=== PATIENT | male | born 1950 | race Caucasian/White ===

== ENCOUNTER 2016-11-18 21:30 | Emergency (ER) | payer OTHER ==
[~2016-11-18] VITALS: Ht 175.3 cm; Wt 73.0 kg
[~2016-11-18 21:30] MED LIST: ASPI81TA82 PO; IMIT25TA PO; LIDO5DIS35 TD; METH10TA PO; METH750T2 PO; MOBI7.5T PO; MULTCAP13 PO; NEUR800T PO; TOPA15CA PO; TRAZ50TA4 PO
[2016-11-18 21:32] VITALS: TEMP 97.8
[2016-11-18 21:37] VITALS: BP 129/83; PULSE 85; RESP 18; O2SAT 96
[2016-11-18] MEDS ORDERED: ACETAMINOPHEN 500 MG CPLT PO ONE (21:45)
--- NOTE | 2016-11-18 22:09 | RADRPT ---
EXAM DATE/TIME: 11/18/2016 21:53 [facility] COMPARISON: CT BRAIN W/O CONTRAST, July 23, 2016, 13:13. INDICATIONS : Trauma; fall. RADIATION DOSE: 40.14 CTDIvol (mGy) MEDICAL HISTORY : Cerebrovascular disease. SURGICAL HISTORY : None. ENCOUNTER: Initial ACUITY: 1 day PAIN SCALE: 5/10 LOCATION: Cranial TECHNIQUE: Multiple contiguous axial images were obtained of the head. Using automated exposure control and adjustment of the mA and/or kV according to patient size, radiation dose was kept as low as reasonably achievable to obtain optimal diagnostic quality images. FINDINGS: There is an old infarct in the right temporal region. The left hemisphere is unremarkable. Posterio r fossa appears normal. There is no parenchymal hemorrhage evident. I see no extra-axial fluid collections appreciated. There is no evidence for fracture. 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 Abelino Rainey MD FACR on November 18, 2016 at 22:03 Board Certified Radiologist. This report was verified electronically.
--- NOTE | 2016-11-18 22:12 | RADRPT ---
EXAM DATE/TIME: 11/18/2016 21:53 [facility] COMPARISON: CT CERVICAL SPINE W/O CONTRAST, July 23, 2016, 13:13. INDICATIONS : Trauma; fall. RADIATION DOSE: 21.53 CTDIvol (mGy) MEDICAL HISTORY : Cerebrovascular disease. SURGICAL HISTORY : None. ENCOUNTER: Initial ACUITY: 1 day PAIN SCALE: 5/10 LOCATION: Neck TECHNIQUE: Volumetric scanning of the cervical spine was performed. Multiplanar reconstructions i n the sagittal, coronal and oblique axial planes were performed. Using automated exposure control a nd adjustment of the mA and/or kV according to patient size, radiation dose was kept as low as reason ably achievable to obtain optimal diagnostic quality images. FINDINGS: Patient has a spinal stimulator in place. The spinal stimulator is at the C2 level. Alignment is anatomic. C1 and C2 are intact. C2-C3: The bony spinal canal is normal in size. No evidence of disc bulge or herniation. The neura l foramina are bilaterally patent. C3-C4: There is moderate facet disease with mild bilateral neural foraminal encroachment. C4-C5: There is moderate bilateral facet disease with neural foraminal encroachment. C5-C6: Moderate uncinate ridging is present with bilateral neural foraminal encroachment. There is no significant spinal stenosis. C6-C7: Mild uncinate ridging is present with mild bilateral neural foraminal encroachment. C7-T1: The bony spinal canal is normal in size. No evidence of disc bulge or herniation. The neura l foramina are bilaterally patent. CONCLUSION: 1. Degenerative changes as described above without fracture. 2. Spinal stimulator in place. Abelino Rainey MD FACR on November 18, 2016 at 22:04 Board Certified Radiologist. This report was verified electronically.
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
--- NOTE | 2016-11-18 22:35 | RADRPT ---
EXAM DATE/TIME: 11/18/2016 21:57 [facility] COMPARISON: No previous studies available for comparison. INDICATIONS : Trauma; fall. RADIATION DOSE: 35.86 CTDIvol (mGy) ; Combined studies - Thoracic Spine/Lumbar Spine MEDICAL HISTORY : Cerebrovascular disease. SURGICAL HISTORY : None. ENCOUNTER: Initial ACUITY: 1 day PAIN SCALE: 5/10 LOCATION: Upper back TECHNIQUE: Volumetric scanning of the thoracic spine was performed. Multiplanar reconstructions in the sagittal , coronal and oblique axial planes were performed. Using automated exposure control and adjustment o f the mA and/or kV according to patient size, radiation dose was kept as low as reasonably achievable to obtain optimal diagnostic quality images. FINDINGS: The bones are osteoporotic with scoliosis evident. There are degenerative changes at C6-C7 and C7-T1. There is good preservation of vertebral body heights. I do not see evidence for a fracture. I don't see any radiographically significant spinal stenosis. There is no evidence for a paravertebral mass . Degenerative changes are seen at T12-L1. CONCLUSION: 1. Spinal stimulator at T6-T7 without spinal stenosis. 2. Scoliosis is evident. 3. A fracture is not appreciated. There is no evidence for a paravertebral mass. Abelino Rainey MD FACR on November 18, 2016 at 22:29 Board Certified Radiologist. This report was verified electronically.
--- NOTE | 2016-11-18 22:40 | RADRPT ---
EXAM DATE/TIME: 11/18/2016 21:57 [facility] COMPARISON: No previous studies available for comparison. INDICATIONS : Trauma; fall. RADIATION DOSE: 35.86 CTDIvol (mGy) ; Combined studies - Thoracic Spine/Lumbar Spine MEDICAL HISTORY : Cerebrovascular disease. SURGICAL HISTORY : None. ENCOUNTER: Initial ACUITY: 1 day PAIN SCALE: 5/10 LOCATION: Lower back TECHNIQUE: Volumetric scanning of the lumbar spine was performed. Multiplanar reconstructions in the sagittal, coronal and oblique axial planes were performed. Using automated exposure control and adjustment of the mA and/or kV according to patient size, radiation dose was kept as low as reasonably achievable t o obtain optimal diagnostic quality images. FINDINGS: Scans were obtained from T11 to S1. There are vacuum discs at L1-L2, L2-L3, L3-L4, L4-L5 and L5-S1. There is reasonable preservation of vertebral body heights. T12-L1: Spinal stimulator is noted. There is no significant spinal stenosis. L1-L2: There is generalized disc bulging present with bilateral neural foraminal encroachment and mild spina l stenosis. L2-L3: There is bilateral neural foraminal encroachment and moderate spinal stenosis from disc bulge and lig amentous hypertrophy. L3-L4: There is vacuum disc evident with bilateral neural foraminal encroachment and mild spinal stenosis. Moderate degenerative changes are present in the facets. L4-L5: Vacuum changes are evident with lateral recess stenosis. There is bilateral neural foraminal encroac hment worse on the left than the right. L5-S1: Vacuum changes are evident. There is bilateral neural foraminal encroachment. There are moderate de generative changes in the facets, worse on the right than the left. There are degenerative changes in both SI joints. CONCLUSION: Extensive degenerative changes as described above. I see no evidence for an acute process. Abelino Rainey MD FACR on November 18, 2016 at 22:31 Board Certified Radiologist. This report was verified electronically.
[2016-11-18 23:50] VITALS: BP 130/87
== END 2016-11-18 23:52 | disposition home or self-care (01) ==
LOC: NEPE 21:30
DX: S16.1XXA Strain of muscle, fascia and tendon at neck level, initial encounter (principal); S39.012A Strain of muscle, fascia and tendon of lower back, initial encounter; M54.2 Cervicalgia; W18.30XA Fall on same level, unspecified, initial encounter; Y93.55 Activity, bike riding
CPT/HCPCS: 70450; 72125; 72128; 72131

== ENCOUNTER 2016-11-26 17:53 | Observation (INO) | payer OTHER ==
[2016-11-26] VITALS (8 sets, daily range): BP systolic 104–120; BP diastolic 59–65; PULSE 60–92; RESP 12–18; TEMP 99–101.8; O2SAT 95–100
[~2016-11-26] VITALS: Ht 172.7 cm; Wt 80.0 kg
[2016-11-26] MEDS ORDERED: SODIUM CHLORIDE 0.9% FLUSH 5 ML FLUSH IVF PRN (18:15)
[2016-11-26 18:42] LABS: AUTOMATED NEUTROPHIL # 6.7 TH/MM3 (1.8-7.7); BASOPHIL # 0.1 TH/MM3 (0-0.2); BASOPHIL % 0.7 % (0.0-2.0); EOSINOPHIL # 0.2 TH/MM3 (0-0.4); EOSINOPHIL % 3.1 % (0.0-4.0); HEMATOCRIT 32.9 % (39.0-51.0); HEMO FLAGS DIFF FINAL; LYMPH % 6.7 % (9.0-44.0); LYMPHOCYTE # 0.5 TH/MM3 (1.0-4.8); MEAN CELL VOLUME 85.6 FL (80.0-100.0); MEAN CORPUSCULAR HEMOGLOBIN 28.2 PG (27.0-34.0); MONO % 5.5 % (0.0-8.0); PLATELET COUNT 204 TH/MM3 (150-450); RED BLOOD COUNT 3.84 MIL/MM3 (4.50-5.90); RED CELL DISTRIBUTION WIDTH 14.3 % (11.6-17.2); WHITE BLOOD COUNT 7.9 TH/MM3 (4.0-11.0)
[2016-11-26] MEDS ORDERED: ACETAMINOPHEN 650 MG SUPP RECTAL ONE (18:45)
[2016-11-26] MEDS ORDERED: SODIUM CHLOR 0.9% 1000 ML INJ 1,000 ML IV ONE ×2 (18:45→19:30)
[2016-11-26 18:51] LABS: BLOOD, URINE NEG (NEG); COMMENT (UR) CULT NOT INDICATED; CULTURE IF INDICATED CULT NOT INDICATED; GLUCOSE,URINE NEG (NEG); KETONE, URINE NEG (NEG); MUCUS URINE FEW /lpf (OCC); NITRITE,URINE NEG (NEG); PH, URINE 5.5 (5.0-8.5); URINE COLOR YELLOW (YELLW/STRAW)
[2016-11-26 18:54] LABS: AMPHETAMINE, URINE NEG (NEG); BARBITURATES, URINE NEG (NEG); COCAINE, URINE NEG (NEG)
--- NOTE | 2016-11-26 18:59 | RADRPT ---
EXAM DATE/TIME: 11/26/2016 18:33 [facility] COMPARISON: CT BRAIN W/O CONTRAST, November 18, 2016, 21:53. INDICATIONS : Fever; altered mental status. RADIATION DOSE: 48.23 CTDIvol (mGy) MEDICAL HISTORY : Stroke. SURGICAL HISTORY : None. ENCOUNTER: Initial ACUITY: 1 day PAIN SCALE: 0/10 LOCATION: cranial TECHNIQUE: Multiple contiguous axial images were obtained of the head. Using automated exposure control and adj ustment of the mA and/or kV according to patient size, radiation dose was kept as low as reasonably a chievable to obtain optimal diagnostic quality images. FINDINGS: CEREBRUM: The ventricles are normal for age. There is persistent encephalomalacia at the right temporal lobe e xtending into the right parietal lobe. No evidence of midline shift, mass lesion, hemorrhage or acute infarction. No extra-axial fluid collections are seen. POSTERIOR FOSSA: The cerebellum and brainstem are intact. The 4th ventricle is midline. The cerebellopontine angle i s unremarkable. EXTRACRANIAL: The visualized portion of the orbits is intact. SKULL: The calvaria is intact. No evidence of skull fracture. CONCLUSION: 1. No new or acute abnormality is seen. 2. Persistent right temporal and parietal encephalomalacia. Kurt Small MD on November 26, 2016 at 18:55 Board Certified Radiologist. This report was verified electronically.
[2016-11-26 19:00] LABS: ANION GAP 11 MEQ/L (5-15)
[2016-11-26 19:03] LABS: ACETAMINOPHEN LESS THAN 2.0 MCG/ML (10.0-30.0); ALKALINE PHOSPHATASE 67 U/L (45-117); ALT (GPT) 16 U/L (12-78); AST (GOT) 19 U/L (15-37); BICARBONATE 19.5 MEQ/L (21.0-32.0); BLOOD UREA NITROGEN 21 MG/DL (7-18); CHLORIDE 116 MEQ/L (98-107); CREATINE KINASE 285 U/L (39-308); GLOMERULAR FILTRATION RATE 48 ML/MIN (>89); POTASSIUM 3.9 MEQ/L (3.5-5.1); SODIUM (NA) 146 MEQ/L (136-145); TOTAL BILIRUBIN ADULT 0.5 MG/DL (0.2-1.0)
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
--- NOTE | 2016-11-26 19:22 | RADRPT ---
EXAM DATE/TIME: 11/26/2016 18:44 [place] COMPARISON: No previous studies available for comparison. INDICATIONS : Syncopal episode per history. MEDICAL HISTORY : Cerebrovascular disease. SURGICAL HISTORY : None. ENCOUNTER: Initial ACUITY: 1 day PAIN SCORE: Non-responsive. LOCATION: Bilateral chest FINDINGS: A single view of the chest demonstrates the lungs to be symmetrically aerated with some linear atelec tasis or scarring in the left inferior perihilar distribution. Lungs are otherwise clear. Heart size is normal. Stimulator is seen in the mid dorsal spine and there some additional tubing projecting ove r the dorsal spine possibly representing a shunt. Osseous structures are intact. CONCLUSION: 1. There is linear atelectasis or scarring in the left inferior perihilar distribution. 2. Lungs otherwise clear Kaden Roth MD on November 26, 2016 at 19:16 Board Certified Radiologist. This report was verified electronically.
[2016-11-26] MEDS ORDERED: NALOXONE HCL 0.4 MG/ML AMP IV PRN (20:30)
[2016-11-26] MEDS ORDERED: ONDANSETRON HCL 4 MG/2 ML VIAL IVP PRN (20:30)
[2016-11-26] MEDS ORDERED: ENOXAPARIN SODIUM 40 MG/0.4 ML SYRINGE SQ SCH (20:30)
[2016-11-26] MEDS ORDERED: SODIUM CHLORIDE 0.9% FLUSH 5 ML FLUSH FLUSH PRN (20:30)
[2016-11-26] MEDS ORDERED: ACETAMINOPHEN 325 MG TAB PO PRN (20:30)
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
[2016-11-26] MEDS: SODIUM CHLORIDE 0.9% FLUSH 5 ML FLUSH FLUSH SCH (21:00)
[2016-11-26] MEDS: SODIUM CHLOR 0.9% 1000 ML INJ 1,000 ML IV SCH (21:12)
[2016-11-26] MEDS ORDERED: SODIUM CHLORID 0.9% 500 ML INJ 500 ML IV ONE (21:30)
[2016-11-27 01:28] VITALS: PULSE 73
[2016-11-27 01:49] VITALS: BP 111/72; PULSE 70; RESP 20; TEMP 96.7; O2SAT 99
[2016-11-27 04:19] VITALS: BP 99/59; PULSE 52; RESP 22; TEMP 97.6; O2SAT 95
[2016-11-27] MEDS: SODIUM CHLOR 0.9% 1000 ML INJ 1,000 ML IV SCH (04:42)
[2016-11-27 06:07] LABS: AUTOMATED NEUTROPHIL # 4.7 TH/MM3 (1.8-7.7); BASOPHIL % 0.7 % (0.0-2.0); EOSINOPHIL # 0.2 TH/MM3 (0-0.4); EOSINOPHIL % 2.5 % (0.0-4.0); HEMATOCRIT 30.2 % (39.0-51.0); HEMO FLAGS DIFF FINAL; LYMPH % 18.7 % (9.0-44.0); LYMPHOCYTE # 1.3 TH/MM3 (1.0-4.8); MEAN CELL VOLUME 84.4 FL (80.0-100.0); MEAN CORPUSCULAR HEMOGLOBIN 28.2 PG (27.0-34.0); MEAN CORPUSCULAR HGB CONC 33.4 % (32.0-36.0); MONO % 8.8 % (0.0-8.0); NEUT % 69.3 % (16.0-70.0); PLATELET COUNT 164 TH/MM3 (150-450); RED BLOOD COUNT 3.58 MIL/MM3 (4.50-5.90); RED CELL DISTRIBUTION WIDTH 14.5 % (11.6-17.2); WHITE BLOOD COUNT 6.7 TH/MM3 (4.0-11.0)
[2016-11-27 06:28] LABS: BICARBONATE 20.3 MEQ/L (21.0-32.0); POTASSIUM 3.9 MEQ/L (3.5-5.1)
[2016-11-27 06:48] LABS: CALCIUM-PROTEIN CORRECTED 8.1 MG/DL (8.5-10.1)
[2016-11-27] MEDS: SODIUM CHLORIDE 0.9% FLUSH 5 ML FLUSH FLUSH SCH (07:37)
[2016-11-27 08:00] VITALS: PULSE 55
[2016-11-27 08:23] VITALS: BP 100/72; PULSE 64; RESP 18; TEMP 95.8; O2SAT 98
--- NOTE | 2016-11-27 08:29 | HHI.DCPOC ---
Discharge Care Plan Diagnosis: (1) Altered mental status Goals to Promote Your Health * To prevent worsening of your condition and complications * To maintain your health at the optimal level Directions to Meet Your Goals Take your medications as prescribed Follow your dietary instruction Follow activity as directed Keep your appointments as scheduled Take your immunizations and boosters as scheduled If your symptoms worsen call your PCP, if no PCP go to Urgent Care Center or Emergency Room Smoking is Dangerous to Your Health. Avoid second hand smoke Call the 24-hour hour crisis hotline for domestic abuse at Diana Mayfield MD R3 Nov 27, 2016 08:29
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
--- NOTE | 2016-11-27 17:04 | EKG ---
Date Performed: 11/26/2016 Time Performed: 19:16:07 PTAGE: 66 years EKG: Sinus rhythm Compared to prior tracing no significant change NORMAL ECG PREVIOUS TRACING : 07/23/2016 11.14 DOCTOR: Chiki Carrizales Interpretating Date/Time 11/27/2016 17:02:21
== END 2016-11-27 13:48 | disposition home or self-care (01) ==
LOC: NEPE 17:53 → NEDA 20:07 → NEPGCP 11-27 00:08
PROVIDERS: ADMIT Family Medicine; ATTEND Family Medicine
DX: R41.82 Altered mental status, unspecified (principal); R40.0 Somnolence; R50.9 Fever, unspecified; F11.90 Opioid use, unspecified, uncomplicated; Z86.73 Personal history of transient ischemic attack (TIA), and cerebral infarction without residual deficits
CPT/HCPCS: 70450; 71010; 80048; 80053; 80307; 81001; 82550; 82948; 84155; 85025; 93005; 96374; 99285; G0378; J1650; J7030; J7040; 80320; 80329; G0480; G0481

== ENCOUNTER 2017-01-12 05:42 | Emergency (ER) | payer MEDICARE, OTHER ==
[~2017-01-12] VITALS: Ht 167.6 cm; Wt 61.0 kg
[2017-01-12 05:45] VITALS: BP 135/80; PULSE 96; RESP 16; TEMP 98.2; O2SAT 97
[2017-01-12] MEDS ORDERED: BUTA1CAP PO (06:08)
[2017-01-12] MEDS ORDERED: IMIT100T PO (06:08)
[2017-01-12] MEDS ORDERED: METH10TA PO (06:08)
[2017-01-12] MEDS ORDERED: ASPI81CH CHEW (06:08)
[2017-01-12] MEDS ORDERED: BUPR8SUB SL (06:08)
[2017-01-12] MEDS ORDERED: NEUR800T PO (06:08)
[2017-01-12] MEDS ORDERED: IBUPROFEN 400 MG TAB PO ONE (06:15)
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
[2017-01-12] MEDS ORDERED: IBUP400T20 PO (06:46)
--- NOTE | 2017-01-12 06:49 | RADRPT ---
EXAM DATE/TIME: 01/12/2017 06:33 [facility] COMPARISON: No previous studies available for comparison. INDICATIONS : Patient complains of left forearm pain. Patient fell 2 days ago, landing on left forearm. MEDICAL HISTORY : None. SURGICAL HISTORY : None. ENCOUNTER: Initial ACUITY: 2 days PAIN SCORE: 8/10 LOCATION: Left Forearm. FINDINGS: On the frontal view, there is a lucency and step off in the cortex of the diametaphyseal region of th e radial styloid. The medial cortex of the distal radius is intact. No significant soft tissue swel ling. The remainder of the radius and ulna appear intact. CONCLUSION: Findings suggest a one cortex fracture of the distal lateral radial metaphysis. Addi Cruz MD on January 12, 2017 at 6:46 Board Certified Radiologist. This report was verified electronically.
[2017-01-12 07:00] VITALS: BP 111/61; PULSE 91; RESP 17; O2SAT 94
== END 2017-01-12 07:51 | disposition home or self-care (01) ==
LOC: NEPC 05:42
DX: S52.592A Other fractures of lower end of left radius, initial encounter for closed fracture (principal); I10 Essential (primary) hypertension; W18.39XA Other fall on same level, initial encounter; Y93.9 Activity, unspecified; Y92.89 Other specified places as the place of occurrence of the external cause; Y99.9 Unspecified external cause status
CPT/HCPCS: 29125; 73090

== ENCOUNTER 2017-07-22 20:09 | Emergency (ER) | payer OTHER ==
[~2017-07-22] VITALS: Ht 170.2 cm; Wt 68.0 kg
[~2017-07-22 20:09] MED LIST changes: +ASPI81CH CHEW; -ASPI81TA82 PO; +BUPR8SUB SL; +BUTA1CAP PO; +IBUP400T20 PO; +IMIT100T PO; -IMIT25TA PO; -LIDO5DIS35 TD; -METH750T2 PO; -MOBI7.5T PO; -MULTCAP13 PO; -TOPA15CA PO; -TRAZ50TA4 PO
[2017-07-22 20:10] VITALS: BP 107/60; PULSE 93; RESP 16; TEMP 96.7; O2SAT 99
[2017-07-22] MEDS ORDERED: SODIUM CHLOR 0.9% 1000 ML INJ 1,000 ML IV ONE (21:15)
[2017-07-22 21:22] VITALS: BP 158/80; PULSE 86; RESP 18; O2SAT 98
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
[2017-07-22] MEDS ORDERED: DEXAMETHASONE SOD PHOS 20 MG/5 ML VIAL IV PUSH ONE (21:30)
[2017-07-22] MEDS ORDERED: diphenhydrAMINE HCL 50 MG/ML VIAL IVP ONE (21:30)
[2017-07-22] MEDS ORDERED: METOCLOPRAMIDE HCL 10 MG/2 ML VIAL IVP ONE (21:30)
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
[2017-07-22 21:47] LABS: AUTOMATED NEUTROPHIL # 6.7 TH/MM3 (1.8-7.7); BASOPHIL # 0.1 TH/MM3 (0-0.2); BASOPHIL % 1.2 % (0.0-2.0); EOSINOPHIL # 0.1 TH/MM3 (0-0.4); EOSINOPHIL % 1.4 % (0.0-4.0); HEMATOCRIT 43.5 % (39.0-51.0); HEMO FLAGS DIFF FINAL; LYMPH % 20.2 % (9.0-44.0); MEAN CELL VOLUME 86.8 FL (80.0-100.0); MEAN CORPUSCULAR HEMOGLOBIN 28.6 PG (27.0-34.0); MONO % 9.2 % (0.0-8.0); PLATELET COUNT 252 TH/MM3 (150-450); RED BLOOD COUNT 5.01 MIL/MM3 (4.50-5.90); RED CELL DISTRIBUTION WIDTH 14.5 % (11.6-17.2); WHITE BLOOD COUNT 9.8 TH/MM3 (4.0-11.0)
[2017-07-22 22:06] LABS: ALT (GPT) 18 U/L (12-78); ANION GAP 9 MEQ/L (5-15); AST (GOT) 20 U/L (15-37); BICARBONATE 23.6 MEQ/L (21.0-32.0); BLOOD UREA NITROGEN 22 MG/DL (7-18); CHLORIDE 110 MEQ/L (98-107); GLOMERULAR FILTRATION RATE 45 ML/MIN (>89); MAGNESIUM 2.1 MG/DL (1.5-2.5); POTASSIUM 3.9 MEQ/L (3.5-5.1); SODIUM (NA) 143 MEQ/L (136-145)
[2017-07-22 22:07] LABS: APTT (PATIENT) 25.5 SEC (24.3-30.1); INTERNATIONAL NORMALIZED RATIO 0.9 RATIO
[2017-07-22 22:10] LABS: ALKALINE PHOSPHATASE 78 U/L (45-117); CREATINE KINASE 107 U/L (39-308); TOTAL BILIRUBIN ADULT 0.5 MG/DL (0.2-1.0)
[2017-07-22 22:22] LABS: CKMB 1.5 NG/ML (0.5-3.6)
[2017-07-22] MEDS ORDERED: IOHEXOL 350 MG/ML 10 ML VIAL (for RAD DIAG) IVCONTRAST ONE (22:40)
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
[2017-07-22] MEDS ORDERED: MAGNESIUM SULFATE 1 GM PREMIX 100 ML IV ONE (23:15)
--- NOTE | 2017-07-23 06:49 | EKG ---
Date Performed: 07/22/2017 Time Performed: 21:31:23 PTAGE: 66 years EKG: Sinus rhythm NORMAL ECG PREVIOUS TRACING : 11/26/2016 19.16 No significant change from previous tracing noted. DOCTOR: Carlos Maddox Interpretating Date/Time 07/23/2017 06:48:52
== END 2017-07-23 00:35 | disposition home or self-care (01) ==
LOC: NEPC 20:09
DX: S06.0X0A Concussion without loss of consciousness, initial encounter (principal); S20.212A Contusion of left front wall of thorax, initial encounter; N28.9 Disorder of kidney and ureter, unspecified; K76.89 Other specified diseases of liver; I10 Essential (primary) hypertension; E78.5 Hyperlipidemia, unspecified; R07.9 Chest pain, unspecified; Z86.73 Personal history of transient ischemic attack (TIA), and cerebral infarction without residual deficits; Z79.82 Long term (current) use of aspirin; W20.8XXA Other cause of strike by thrown, projected or falling object, initial encounter; Y93.H9 Activity, other involving exterior property and land maintenance, building and construction; Y92.007 Garden or yard of unspecified non-institutional (private) residence as the place of occurrence of the external cause; Y99.8 Other external cause status
CPT/HCPCS: 70450; 71010; 71260; 80053; 82550; 82552; 83735; 84484; 85025; 85610; 85730; 93005; 96361; 96365; 96375; 99285; J1100; J1200; J2765; J3475; J7030; Q9967